=== PATIENT | female | born 1945 | race African-American/Black ===

== ENCOUNTER 2021-08-31 22:53 | Emergency (ER) | payer OTHER ==
[~2021-08-31] VITALS: Ht 175.3 cm; Wt 109.1 kg
[2021-08-31] MEDS ORDERED: MONT-39 PO (23:05)
[2021-08-31] MEDS ORDERED: BUPR-113 PO (23:06)
[2021-08-31] MEDS ORDERED: LOSA100T32 PO (23:06)
[2021-08-31] MEDS ORDERED: WARF-53 PO (23:07)
[2021-08-31] MEDS ORDERED: ATOR80TA PO (23:07)
[2021-08-31] MEDS ORDERED: BISO5TAB13 PO (23:08)
[2021-08-31] MEDS ORDERED: DILT360T13 PO (23:08)
[2021-08-31 23:38] LABS: BASOPHILS % 0.7 % (0.0-2.0); EOSINOPHILS % 2.3 % (0.0-5.0); HEMATOCRIT. 36.9 % (36.0-48.0); LYMPHOCYTES % 16.4 % (20.0-50.0); MEAN CORPUSCULAR HEMOGLOBIN 28.8 pg (28.0-32.0); MEAN CORPUSCULAR VOLUME 88.9 fL (81.0-99.0); MEAN PLATELET VOLUME 8.6 fl (7.4-10.4); MONOCYTES % 13.8 % (2.0-8.0); NEUTROPHILS % 66.8 % (40.0-76.0); PLATELET 215 x1000/uL (130-400); RED BLOOD CELL COUNT 4.15 mill/uL (4.2-5.4); RED CELL DISTRIBUTION WIDTH 14.8 % (11.6-14.6)
[2021-08-31 23:44] LABS: CHLORIDE 106 mEq/L (98-107)
[2021-08-31 23:50] LABS: INR 1.5; PARTIAL THROMBOPLASTIN TIME 28.2 sec (23.4-31.0); PROTHROMBIN TIME 15.2 sec (9.6-11.0)
[2021-08-31 23:55] LABS: ETHANOL BLOOD < 10 mg/dL; LDL CHOLESTEROL 60 mg/dL (5-100)
[2021-09-01] MEDS ORDERED: IOHEXOL-350 100 ML BOTTLE ONE (00:36)
[2021-09-01 01:20] LABS: CLARITY URINE CLEAR (CLEAR); COLOR URINE YELLOW (YELLOW); KETONES URINE NEGATIVE (NEGATIVE); LEUKOCYTE ESTERASE URINE NEGATIVE (NEGATIVE); NITRITE URINE NEGATIVE (NEGATIVE); OCCULT BLOOD URINE NEGATIVE (NEGATIVE); PROTEIN URINE NEGATIVE (NEGATIVE); SPECIFIC GRAVITY URINE 1.021 (1.005-1.030); UROBILINOGEN URINE 0.2 E.U./dL (0.2-1.0)
[2021-09-01 01:36] LABS: *AMPHETAMINES SCREEN URINE NEGATIVE (NEGATIVE); *BARBITURATES SCREEN URINE NEGATIVE (NEGATIVE); *BENZODIAZEPINES SCREEN URINE NEGATIVE (NEGATIVE); *COCAINE SCREEN URINE NEGATIVE (NEGATIVE); CANNABINOID URINE SCREEN NEGATIVE (NEGATIVE); METHADONE URINE SCREEN NEGATIVE (NEGATIVE); OPIATES URINE SCREEN NEGATIVE (NEGATIVE); PHENCYCLIDINE URINE SCREEN NEGATIVE (NEGATIVE)
[2021-09-01] MEDS ORDERED: WARFARIN SODIUM 5MG TABLET PO ONE (07:00)
[2021-09-01 10:14] VITALS: BP 102/70
== END 2021-09-01 11:36 | disposition hospice, inpatient (51) ==
LOC: ER 22:53
DX: G45.9 Transient cerebral ischemic attack, unspecified (principal); R53.1 Weakness; I48.91 Unspecified atrial fibrillation; J44.9 Chronic obstructive pulmonary disease, unspecified; E11.9 Type 2 diabetes mellitus without complications; E78.00 Pure hypercholesterolemia, unspecified; I10 Essential (primary) hypertension; I25.2 Old myocardial infarction; Z86.73 Personal history of transient ischemic attack (TIA), and cerebral infarction without residual deficits; Z79.899 Other long term (current) drug therapy; Z20.822 Contact with and (suspected) exposure to COVID-19
CPT/HCPCS: 36415; 70450; 70496; 70498; 71045; 80053; 80305; 80320; 81003; 82962; 83721; 83880; 84484; 85025; 85610; 85730; 86850; 86900; 86901; 87426; 93005; 99291; Q9967; G0480

== ENCOUNTER 2023-05-17 22:31 | Emergency (ER) | payer OTHER ==
[~2023-05-17] VITALS: Ht 167.6 cm; Wt 105.8 kg
[~2023-05-17 22:31] MED LIST: ATOR80TA PO; BISO5TAB13 PO; BUPR-113 PO; DILT360T13 PO; LOSA100T33 PO; MONT-39 PO; WARF-53 PO
[2023-05-17 22:37] VITALS: O2SAT 99
[2023-05-17 23:22] LABS: EOSINOPHILS % 2.7 % (0.0-5.0); HEMATOCRIT. 38.9 % (36.0-48.0); HEMOGLOBIN. 12.7 g/dL (12.0-16.0); LYMPHOCYTES % 22.6 % (20.0-50.0); MEAN CORPUSCULAR HGB CONC 32.6 g/dL (31.0-37.0); MEAN CORPUSCULAR VOLUME 88.8 fL (81.0-99.0); MEAN PLATELET VOLUME 8.8 fl (7.4-10.4); MONOCYTES % 8.7 % (2.0-8.0); PLATELET 207 x1000/uL (130-400); RED BLOOD CELL COUNT 4.38 mill/uL (4.2-5.4); RED CELL DISTRIBUTION WIDTH 14.7 % (11.6-14.6); WHITE BLOOD COUNT 6.2 x1000/uL (4.5-11.0)
[2023-05-17 23:26] LABS: D-DIMER 0.85 mg/L FEU (<0.50); PROTHROMBIN TIME 11.1 sec (9.6-11.0)
[2023-05-17 23:43] LABS: ALANINE AMINOTRANSFERASE 14 IU/L (10-49); ALBUMIN 4.2 g/dL (3.2-4.8); ASPARTATE AMINOTRANSFERASE 26 IU/L (<34); BILIRUBIN TOTAL 0.5 mg/dL (0.1-1.0); CALCIUM 9.5 mg/dL (8.7-10.4); CARBON DIOXIDE 25 mEq/L (21-32); CHLORIDE 110 mEq/L (98-107); CREATINE KINASE 418 IU/L (34-145); CREATININE 1.1 mg/dL (0.6-1.0); GLUCOSE 104 mg/dL (70-105); POTASSIUM 4.1 mEq/L (3.5-5.1); PROTEIN TOTAL 7.1 g/dL (6.0-8.3); SODIUM 140 mEq/L (136-145); UREA NITROGEN BLOOD 20 mg/dL (9-23)
[2023-05-17 23:56] LABS: TROPONIN I HIGH SENSITIVITY 88 ng/L (3.0-34)
[2023-05-17 23:57] LABS: ETHANOL BLOOD < 10 mg/dL (<10)
[2023-05-18 01:20] LABS: CLARITY URINE CLEAR (CLEAR); COLOR URINE YELLOW (YELLOW); GLUCOSE URINE NEGATIVE (NEGATIVE); KETONES URINE NEGATIVE (NEGATIVE); LEUKOCYTE ESTERASE URINE NEGATIVE (NEGATIVE); NITRITE URINE NEGATIVE (NEGATIVE); OCCULT BLOOD URINE NEGATIVE (NEGATIVE); PH URINE 6.5 (4.5-8.0); PROTEIN URINE NEGATIVE (NEGATIVE); UROBILINOGEN URINE 0.2 E.U./dL (0.2-1.0)
[2023-05-18] MEDS: ASPIRIN 325MG EC TABLET PO NR (01:20)
[2023-05-18 01:28] LABS: *AMPHETAMINES SCREEN URINE NEGATIVE (NEGATIVE); *BARBITURATES SCREEN URINE NEGATIVE (NEGATIVE); *BENZODIAZEPINES SCREEN URINE NEGATIVE (NEGATIVE); *COCAINE SCREEN URINE NEGATIVE (NEGATIVE); CANNABINOID URINE SCREEN NEGATIVE (NEGATIVE); ECSTASY MDMA SCREEN URINE NEGATIVE (NEGATIVE); METHADONE URINE SCREEN Neg (NEGATIVE); OPIATES URINE SCREEN NEGATIVE (NEGATIVE); PHENCYCLIDINE URINE SCREEN NEGATIVE (NEGATIVE)
[2023-05-18] MEDS: IOHEXOL-350 100 ML BOTTLE ONE (03:12)
[2023-05-18 05:50] LABS: TROPONIN I HIGH SENSITIVITY 79 ng/L (3.0-34)
[2023-05-18] MEDS: HYDRALAZINE 20MG/ML VIAL IV ONE (08:30)
[2023-05-18 08:42] VITALS: BP 152/82; PULSE 60; RESP 18; TEMP 98.1
== END 2023-05-18 09:22 | disposition short-term general hospital (02) ==
LOC: ER 22:31 → CANBEDREQ 05-18 09:02 → ER 05-18 09:22
DX: R53.1 Weakness (principal); R51.9 Headache, unspecified; I48.91 Unspecified atrial fibrillation; J44.9 Chronic obstructive pulmonary disease, unspecified; E11.9 Type 2 diabetes mellitus without complications; E78.00 Pure hypercholesterolemia, unspecified; I10 Essential (primary) hypertension; I25.2 Old myocardial infarction; Z86.73 Personal history of transient ischemic attack (TIA), and cerebral infarction without residual deficits; Z79.899 Other long term (current) drug therapy; Z20.822 Contact with and (suspected) exposure to COVID-19
CPT/HCPCS: 80053; 80320; 82550; 82962; 83880; 85025; 85379; 85610; 84484 ×2; 36415 ×2; 71045; 70496; 70498; 70450; 93005; 99291; 80305; 81003; 96374; 87426; Q9967; J0360; G0480